=== PATIENT | female | born 1950 | race Caucasian/White ===

== ENCOUNTER → 2021-09-23 08:02 | Outpatient (CLI) | payer MEDICARE, BC, SELFPAY ==
[2021-09-23 19:59] LABS: COVID19 - ORCAS (NP or Nasal) Negative (Negative)
== END ==
PROVIDERS: PCP Family Medicine; Visit Provider Physician Assistant
DX: Z20.822 Contact with and (suspected) exposure to COVID-19 (principal)
CPT/HCPCS: C9803; U0003

== ENCOUNTER → 2025-06-07 09:39 | Outpatient (CLI) | payer MEDICARE, BC, SELFPAY ==
[2025-06-07 19:29] LABS: Add Manual Diff / Slide Review NO; Hematocrit 42.0 % (36-46); Hemoglobin 14.4 g/dL (12.0-16.0); Lymphocytes Absolute Auto 1700 /uL (1100-4500); Mean Corpuscular HGB Conc 34.2 % (30-36); Mean Corpuscular Hemoglobin 30.7 PG (26-34); Mean Corpuscular Volume 89.7 fL (80-100); Platelet Count 172 X10^3/uL (150-400)
[2025-06-07 19:43] LABS: Alanine Aminotransferase 24 IU/L (<35); Albumin 4.1 g/dL (3.5-5.0); Albumin Globulin Ratio 1.9 (1.0-2.8); Alkaline Phosphatase 56 U/L (38-126); Blood Urea Nitrogen 18 mg/dL (7-17); Calcium 9.2 mg/dL (8.4-10.2); Carbon Dioxide 28 mmol/L (22-32); Chloride 106 mmol/L (98-107); Cholesterol 150 mg/dL (140-199); Estimated Glomerular Filt Rate > 60 mL/min (>60); Globulin 2.2 g/dL (1.7-4.1); Glucose 91 mg/dL (70-99); HDL Cholesterol 46 mg/dL (40-60); HEMOLYSIS < 15 (0-50); Potassium 4.6 mmol/L (3.4-5.1); Sodium 139 mmol/L (137-145); Total Protein 6.3 g/dL (6.3-8.2); Triglycerides 78 mg/dL (35-150)
[2025-06-07 20:14] LABS: TSH w/ Reflex to FT4 3.89 uIU/mL (0.47-4.68)
== END ==
PROVIDERS: PCP Physician Assistant Medical; Visit Provider Physician Assistant Medical
DX: R00.2 Palpitations (principal); E78.5 Hyperlipidemia, unspecified; L71.9 Rosacea, unspecified; E78.2 Mixed hyperlipidemia; M54.41 Lumbago with sciatica, right side; Z87.19 Personal history of other diseases of the digestive system; G89.29 Other chronic pain; I10 Essential (primary) hypertension; K58.0 Irritable bowel syndrome with diarrhea; G60.9 Hereditary and idiopathic neuropathy, unspecified
CPT/HCPCS: 80053; 80061; 84443; 85025

== ENCOUNTER → 2025-06-22 12:11 | Outpatient (CLI) | payer MEDICARE, BC, SELFPAY ==
--- NOTE | 2025-06-22 12:13 | DI.ECHO.S_ITS ---
[place] [facility] : : [id number] : : [place] : : [id number] : : Phone: [phone] Echocardiogram Report + + :Name: HIRO FRITZ Study Date: 06/22/2025 Height: 67 in : :[facility] ReadingLocation: Weight: 160 lb : : Gender: Female BSA: 1.8 m2 : :: 1950 Age: 75 yrs BP: 136/91 mmHg: :Reason For Study: PALPITATIONS : :Ordering Physician: CADEN, : :RHODA Performed By: Jaylon Andrade : :Referring: RHODA NEGRETE : + + Interpretation Summary The ejection fraction is estimated to be 55-60%. Grade I diastolic dysfunction. The right ventricle is normal in size and function. The left atrium is mildly dilated. 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 There is mild mitral regurgitation. There is mild aortic regurgitation. The IVC is of normal diameter and collapses greater than 50% with a sniff. This suggests a low right atrial pressure of 3 mm Hg. Procedure: A two-dimensional transthoracic echocardiogram with color flow and Doppler was performed. The study quality was technically good. There is no prior echocardiogram noted for this patient. The patient was in normal sinus rhythm during the exam. Left Ventricle: The left ventricle is normal in size. There is normal left ventricular wall thickness. There is no ventricular septal defect visualized. The ejection fraction is estimated to be 55-60%. There are no focal wall motion abnormalities. Grade I diastolic dysfunction. Right Ventricle: The right ventricle is normal in size and function. Atria: The left atrium is mildly dilated. Right atrial size is normal. There is no Doppler evidence for an interatrial shunt. Mitral Valve: The mitral valve leaflets appear mildly thickened. 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 There is mild mitral regurgitation. Aortic Valve: The aortic valve is trileaflet. The aortic valve opens well. The aortic valve is mildly calcified. There is no hemodynamically significant valvular aortic stenosis. There is mild aortic regurgitation. Tricuspid Valve: The tricuspid valve leaflets are thin and pliable. There is a trace or physiologic amount of tricuspid regurgitation. Pulmonic Valve: The pulmonic valve is not well seen, but is grossly normal. There is no pulmonic valvular regurgitation. Great Vessels: The aortic root is normal size. The dimensions of the ascending aorta are normal. The pulmonary artery is normal size. The IVC is of normal diameter and collapses greater than 50% with a sniff. This suggests a low right atrial pressure of 3 mm Hg. Pericardium/ Pleura There is no pericardial effusion. There is no pleural effusion. MMode/2D Measurements & Calculations LVIDd: 4.1 cm LVOT diam: 1.9 cm LVIDs: 2.9 cm Ao root diam: 3.1 cm FS: 31.1 % asc Aorta Diam: 3.3 cm EPSS: 0.55 cm IVSd: 0.99 cm LVPWd: 0.86 cm LV diez. diameter/BSA (cm/m^2): 2.3 LV sys. diameter/BSA (cm/m^2): 1.6 LA A2 area: 24.3 cm2 RA long axis: 5.5 cm LA A4 area: 19.0 cm2 RA area: 14.8 cm2 LA length (vol): 5.1 cm RA vol: 33.6 ml LA vol: 76.9 ml RA : 18.3 ml/m2 LA vol index: 41.8 ml/m2 IVC diam: 1.6 cm RVD1 (basal): 3.2 cm RVD2 (mid): 2.2 cm TAPSE: 3.0 cm Doppler Measurements & Calculations Ao V2 max: 141.6 cm/sec LVOT Max Wong: 121.0 cm/sec Ao V2 mean: 105.5 cm/sec LV V1 max P.9 mmHg Ao max P.0 mmHg LV V1 VTI: 27.8 cm Ao mean P.8 mmHg LOUIS(I,D): 2.3 cm2 Ao V2 VTI: 33.3 cm LOUIS(V,D): 2.3 cm2 sev ratio: 0.83 LOUIS indexed to BSA (cm^2/m^2): 1.2 MV E max wong: 63.2 cm/sec TR max wong: 213.1 cm/sec MV A max wong: 67.0 cm/sec TR max P.2 mmHg MV E/A: 0.94 PA V2 max: 85.2 cm/sec Med Peak E' Wong: 5.1 cm/sec PA V2 mean: 61.3 cm/sec E/E' med: 12.4 PA mean P.6 mmHg Lat Peak E' Wong: 7.1 cm/sec PA pr(Accel): 32.8 mmHg E/E' lat: 8.9 E/e' average: 10.6 MV dec time: 0.27 sec [facility] 75.5 ml Reading Physician:[id number] PM
== END ==
LOC: ECHO 12:12
PROVIDERS: PCP Physician Assistant Medical; Referring Provider Physician Assistant Medical; Visit Provider Physician Assistant Medical
DX: I08.0 Rheumatic disorders of both mitral and aortic valves (principal); R00.2 Palpitations; I10 Essential (primary) hypertension
CPT/HCPCS: 93306